=== PATIENT | male | born 1985 | race Caucasian/White ===

== ENCOUNTER 2016-06-05 23:07 | Emergency (ER) | payer SELFPAY ==
[~2016-06-05] VITALS: Ht 185.4 cm; Wt 88.0 kg
[~2016-06-05 23:07] MED LIST: IBUP600T26 PO
[2016-06-05 23:10] VITALS: BP 132/96; PULSE 112; RESP 16; TEMP 98.5; O2SAT 98
== END 2016-06-05 23:40 | disposition left against medical advice (07) ==
LOC: NED 23:07
DX: S09.93XA Unspecified injury of face, initial encounter (principal)
CPT/HCPCS: 99281

== ENCOUNTER 2017-05-17 11:18 | Emergency (ER) | payer SELFPAY ==
[2017-05-17 11:48] VITALS: BP 144/89; PULSE 125; RESP 20; TEMP 100.3; O2SAT 99
[2017-05-17] MEDS ORDERED: SODIUM CHLOR 0.9% 1000 ML INJ 1,000 ML IV SCH (12:43)
[2017-05-17] MEDS ORDERED: KETOROLAC TROMETHAMINE 30 MG/ML (IVP) VIAL IVP ONE (12:45)
[2017-05-17] MEDS ORDERED: diphenhydrAMINE HCL 50 MG/ML VIAL IV PUSH ONE (12:45)
[2017-05-17] MEDS ORDERED: SODIUM CHLORIDE 0.9% FLUSH 10 ML FLUSH IV FLUSH PRN (12:45)
--- NOTE | 2017-05-17 12:57 | PD ---
HPI Chief Complaint: Cold / Flu Symptoms Time Seen by Provider: 12:38 Travel History International Travel<30 days: No Contact w/Intl Traveler<30days: No Traveled to known affect area: No History of Present Illness HPI 31-year-old male presents emergency department with complaint of cough, sore throat, nasal congestion 2 days. Woke up this morning and felt feverish. Patient has fever of 100.3 in the ER. He is also complaining of a generalized itchy rash to his body that developed this morning after taking Mucinex. He has taken Mucinex in the past and has not developed a rash prior. He also took it yesterday without rash. Denies lump in throat, difficulty swallowing, unusual drooling. Reports painful swallowing. Denies abdominal pain, vomiting , diarrhea. Denies neck pain, back pain. Reports body aches. Denies chest pain, shortness of breath. Denies airway edema, tongue edema, difficulty breathing, stridor, wheezing. Was taking DayQuil and NyQuil for his symptom management also. Symptoms are moderate in severity. No others with similar symptoms. No known relieving or aggravating factors. No primary care provider. No known allergies that he knows of. Denies significant past medical history. Has no other medical complaints. No other modifying factors or associated signs and symptoms. PFSH Past Medical History Diminished Hearing: No Past Surgical History Other Surgery: Yes (RIGHT FOOT, BUNION AND HAMMER TOE SX) Social History Alcohol Use: Yes (WEEKENDS) Tobacco Use: No Substance Use: No Allergies-Medications (Allergen,Severity, Reaction): Coded Allergies: No Known Allergies (Unverified , 05/25/15) Reported Meds & Prescriptions Reported Meds & Active Scripts Active Tessalon Perles (Benzonatate) 100 Mg Cap 100 Mg PO TID PRN 3 Days Keflex (Cephalexin) 500 Mg Cap 500 Mg PO Q12H 7 Days Ibuprofen 800 Mg Tab 800 Mg PO Q6HR PRN Deltasone (Prednisone) 20 Mg Tab 40 Mg PO DAILY 4 Days start 05/18/2017 Azithromycin 500 Mg Tab 500 Mg PO DAILY Review of Systems Except as stated in HPI: all other systems reviewed are Neg Physical Exam Narrative GENERAL: Well-nourished, well-developed male patient, in no acute distress; temperature 100.3 in the ER SKIN: Warm and dry. Generalized large and small areas of maculopapular rash to entire body including face. No cellulitic process noted. HEAD: Atraumatic. Normocephalic. EYES: Pupils equal and round at 3 mm with brisk reaction. No scleral icterus. No injection or drainage. PERRLA. ENT: Mucosa pink and dry. Pharynx with 2+ tonsils; with erythema; without exudate. No uvular edema. No uvular, palatal, or tonsillar deviation. Airway patent. EARS: Bilateral pinnae and external canals appear within normal limits. Bilateral tympanic membranes without erythema, dullness or perforation.. NECK: Trachea midline. No anterior cervical lymphadenopathy and tenderness. CARDIOVASCULAR: Tachycardic rate and rhythm in the 120s. No murmur appreciated. RESPIRATORY: No accessory muscle use. Clear to auscultation. Breath sounds equal bilaterally. GASTROINTESTINAL: Abdomen soft, non-tender, nondistended. Hepatic and splenic margins not palpable. Bowel sounds are active 4 quadrants. MUSCULOSKELETAL: No obvious deformities. No clubbing. No cyanosis. No edema. NEUROLOGICAL: Awake and alert. Oriented 3. No obvious cranial nerve deficits. Motor grossly within normal limits. Normal speech. Moves all extremities. PSYCHIATRIC: Appropriate mood and affect; insight and judgment normal. Data Data Last Documented VS Vital Signs Date Time Temp Pulse Resp B/P (MAP) Pulse Ox O2 Delivery O2 Flow Rate FiO2 05/17/17 11:48 100.3 125 20 144/89 (107) 99 Orders Orders Influenzae A/B Antigen (05/17/17 11:50) Chest, Pa & Lat (05/17/17 ) Complete Blood Count With Diff (05/17/17 12:43) Comprehensive Metabolic Panel (05/17/17 12:43) Iv Access Insert/Monitor (05/17/17 12:43) Sodium Chlor 0.9% 1000 Ml Inj (Ns 1000 M (05/17/17 12:43) Sodium Chloride 0.9% Flush (Ns Flush) (05/17/17 12:45) Ketorolac Inj (Toradol Inj) (05/17/17 12:45) Diphenhydramine Inj (Benadryl Inj) (05/17/17 12:45) Methylprednisolone So Succ Inj (Solumedr (05/17/17 13:00) Group A Rapid Strep Screen (05/17/17 12:52) Strep Culture (Group A) (05/17/17 13:00) Ed Discharge Order (05/17/17 14:05) Labs Laboratory Tests Test 05/17/17 13:00 White Blood Count 17.2 TH/MM3 Red Blood Count 4.72 MIL/MM3 Hemoglobin 15.0 GM/DL Hematocrit 43.1 % Mean Corpuscular Volume 91.3 FL Mean Corpuscular Hemoglobin 31.8 PG Mean Corpuscular Hemoglobin Concent 34.8 % Red Cell Distribution Width 12.7 % Platelet Count 212 TH/MM3 Mean Platelet Volume 10.2 FL Neutrophils (%) (Auto) 83.0 % Lymphocytes (%) (Auto) 6.7 % Monocytes (%) (Auto) 8.2 % Eosinophils (%) (Auto) 1.9 % Basophils (%) (Auto) 0.2 % Neutrophils # (Auto) 14.2 TH/MM3 Lymphocytes # (Auto) 1.2 TH/MM3 Monocytes # (Auto) 1.4 TH/MM3 Eosinophils # (Auto) 0.3 TH/MM3 Basophils # (Auto) 0.0 TH/MM3 CBC Comment DIFF FINAL Differential Comment Blood Urea Nitrogen 6 MG/DL Creatinine 0.98 MG/DL Random Glucose 102 MG/DL Total Protein 8.2 GM/DL Albumin 3.3 GM/DL Calcium Level 8.8 MG/DL Alkaline Phosphatase 84 U/L Aspartate Amino Transf (AST/SGOT) 53 U/L Alanine Aminotransferase (ALT/SGPT) 62 U/L Total Bilirubin 1.3 MG/DL Sodium Level 137 MEQ/L Potassium Level 4.6 MEQ/L Chloride Level 105 MEQ/L Carbon Dioxide Level 23.1 MEQ/L Anion Gap 9 MEQ/L Estimat Glomerular Filtration Rate 89 ML/MIN [facility] Medical Decision Making Medical Screen Exam Complete: Yes Emergency Medical Condition: Yes Medical Record Reviewed: Yes Differential Diagnosis Influenza, pneumonia, upper respiratory infection, strep pharyngitis, viral pharyngitis, hives, allergic reaction Narrative Course 31-year-old male with cold/flu symptoms and a rash to his entire body, including in phase, that appears to be consistent with hives. The rash is itchy. Rash developed after taking Mucinex this morning. He is in no acute distress and denies airway edema. No retractions or tachypnea. Patient is tachycardic in the 120s. He denies chest pain, shortness of breath. Patient has fever of 100.3 in the ER. CBC, CMP, IV, Solu-Medrol, Benadryl, Toradol, rapid strep, influenza, chest x-ray, normal saline bolus ordered. 1347: Chest x-ray conclude: Focal area of parenchymal consolidation right upper lung measuring 4.6 cm. Smaller area of consolidation left midlung measuring 2.2 cm. The findings suggest most likely bilateral pneumonia. Recommend a followup two-view chest in approximately 2-3 weeks after appropriate medical therapy to ensure resolution. If infiltrates do not resolve after appropriate medical therapy, then a noncontrast CT thorax to be performed for further evaluation. Patient provided a copy of the x-ray report. Denies IVDU. 1347: Rapid strep negative. Azithromycin, Keflex, Deltasone, ibuprofen, Tessalon perles prescribed for home. Instructed patient to follow-up in 2-3 weeks for repeat chest x-ray and he verbalized understanding and agreement. Discussed patient with Dr. pulido and he agrees with my plan of care, follow-up care discharge. Instructed patient to follow up with primary care provider. Patient verbalizes understanding and agreement with treatment plan. Patient is medically cleared and stable for discharge. Discussed reasons to return to the emergency department. Patient agrees with treatment plan. The patients vital signs are stable and the patient is stable for outpatient follow-up and treatment. Patient discharged home, stable and in no acute distress. Diagnosis Primary Impression: Pneumonia Qualified Codes: J18.9 - Pneumonia, unspecified organism Additional Impression: Rash and nonspecific skin eruption Referrals: [facility] Primary Care Physician Patient Instructions: Community Acquired Pneumonia (ED), General Instructions Departure Forms: Tests/Procedures, Work Release Special Instructions: No work until fever free for 24 hours. Fever is greater than 100.4. Additional Instructions: Ibuprofen or Tylenol as directed and as needed to reduce fever; may alternate ibuprofen and Tylenol as needed every 3 hours to minimize fever [id number] cold/flu medications as directed and as needed for symptom management Get plenty of sleep/rest Drink plenty of fluids to prevent dehydration; such as Gatorade, Powerade, Pedialyte [place] diet to encourage nutrition such as crackers, fruit, applesauce, toast, soup etc. Use an air humidifier/turn off ceiling fans Follow-up with your primary care provider within 1 day Return immediately to the emergency department with worsening of symptoms Take oral steroids as prescribed [id number] topicals to reduce itch Benadryl as directed and as needed to reduce itch Follow-up with your primary care provider Follow-up for allergy testing Return to the emergency department immediately with worsening of symptoms Med/Other Pt SpecificInfo: Prescription(s) given Scripts Benzonatate (Tessalon Perles) 100 Mg Cap 100 MG PO TID Y for COUGH for 3 Days, CAP 0 Refills Prov: Mandie Lowery 05/17/17 Cephalexin (Keflex) 500 Mg Cap 500 MG PO Q12H for Infection for 7 Days, #14 CAP 0 Refills Prov: Mandie Lowery 05/17/17 Ibuprofen (Ibuprofen) 800 Mg Tab 800 MG PO Q6HR Y for PAIN, #30 TAB 0 Refills Prov: Mandie Lowery 05/17/17 Prednisone (Deltasone) 20 Mg Tab 40 MG PO DAILY for 4 Days, #8 TAB 0 Refills start 05/18/2017 Prov: Mandie Lowery 05/17/17 Azithromycin (Azithromycin) 500 Mg Tab 500 MG PO DAILY for Infection, #5 TAB 0 Refills Prov: Mandie Lowery 05/17/17 Disposition: 01 DISCHARGE HOME Condition: Stable Mandie Lowery May 17, 2017 12:57
[2017-05-17] MEDS ORDERED: methylPREDNISolone SOD SUCC 125 MG/2 ML VIAL IV PUSH ONE (13:00)
[2017-05-17 13:23] LABS: AUTOMATED NEUTROPHIL # 14.2 TH/MM3 (1.8-7.7); BASOPHIL % 0.2 % (0.0-2.0); EOSINOPHIL # 0.3 TH/MM3 (0-0.4); EOSINOPHIL % 1.9 % (0.0-4.0); HEMATOCRIT 43.1 % (39.0-51.0); LYMPH % 6.7 % (9.0-44.0); LYMPHOCYTE # 1.2 TH/MM3 (1.0-4.8); MEAN CELL VOLUME 91.3 FL (80.0-100.0); MEAN CORPUSCULAR HEMOGLOBIN 31.8 PG (27.0-34.0); MEAN CORPUSCULAR HGB CONC 34.8 % (32.0-36.0); MEAN PLATELET VOLUME 10.2 FL (7.0-11.0); MONO % 8.2 % (0.0-8.0); MONOCYTE # 1.4 TH/MM3 (0-0.9); PLATELET COUNT 212 TH/MM3 (150-450); RED BLOOD COUNT 4.72 MIL/MM3 (4.50-5.90); RED CELL DISTRIBUTION WIDTH 12.7 % (11.6-17.2); WHITE BLOOD COUNT 17.2 TH/MM3 (4.0-11.0)
[2017-05-17 13:38] LABS: ALT (GPT) 62 U/L (12-78)
[2017-05-17 13:40] LABS: ALBUMIN 3.3 GM/DL (3.4-5.0); ALKALINE PHOSPHATASE 84 U/L (45-117); AST (GOT) 53 U/L (15-37); BICARBONATE 23.1 MEQ/L (21.0-32.0); BLOOD UREA NITROGEN 6 MG/DL (7-18); CALCIUM 8.8 MG/DL (8.5-10.1); CHLORIDE 105 MEQ/L (98-107); CREATININE 0.98 MG/DL (0.60-1.30); GLOMERULAR FILTRATION RATE 89 ML/MIN (>89); GLUCOSE,RANDOM 102 MG/DL (74-106); SODIUM (NA) 137 MEQ/L (136-145); TOTAL BILIRUBIN ADULT 1.3 MG/DL (0.2-1.0); TOTAL PROTEIN 8.2 GM/DL (6.4-8.2)
--- NOTE | 2017-05-17 13:43 | RADRPT ---
EXAM DATE/TIME: 05/17/2017 13:17 [place] COMPARISON: No previous studies available for comparison. INDICATIONS : Cough. Patient states when he coughs he has discomfort in chest. Patient has a sore throat and develo ped hives. MEDICAL HISTORY : None. SURGICAL HISTORY : None. ENCOUNTER: Initial ACUITY: 4 - 6 days PAIN SCORE: 0/10 LOCATION: Bilateral chest FINDINGS: Today's examination there is a focal area of parenchymal consolidation in the right upper lung measur ing 4.6 cm. There is a smaller area of parenchymal consolidation in the left midlung measuring 2.2 cm . The right lung cruz are grossly clear. There no pleural effusions or pulmonary edema. Heart size within normal limits. Bony structures are grossly intact. CONCLUSION: 1. Focal area of parenchymal consolidation right upper lung measuring 4.6 cm. Smaller area of consoli dation left midlung measuring 2.2 cm. The findings suggest most likely bilateral pneumonia. Recommend a followup two-view chest in approximately 2-3 weeks after appropriate medical therapy to ensure res olution. If infiltrates do not resolve after appropriate medical therapy, then a noncontrast CT thora x to be performed for further evaluation. Mike Grant MD on May 17, 2017 at 13:39 Board Certified Radiologist. This report was verified electronically.
[2017-05-17] MEDS ORDERED: PRED-503 PO (13:52)
[2017-05-17] MEDS ORDERED: IBUP1TAB7 PO (13:52)
[2017-05-17] MEDS ORDERED: AZIT500T2 PO (13:52)
[2017-05-17] MEDS ORDERED: CEPH-460 PO (14:04)
[2017-05-17] MEDS ORDERED: BENZ100 PO (14:04)
[2017-05-17 14:44] VITALS: PULSE 109; RESP 18; O2SAT 98
== END 2017-05-17 14:46 | disposition home or self-care (01) ==
LOC: NEPD 11:18
DX: J18.9 Pneumonia, unspecified organism (principal); R21 Rash and other nonspecific skin eruption
CPT/HCPCS: 71046; 80053; 85025; 87081; 87804; 87880; 96374; 96375; 99284; J1200; J1885; J2930; J7030